=== PATIENT | female | born 1965 | race African-American/Black ===

== ENCOUNTER 2017-03-23 16:42 | Inpatient (IN) | payer OTHER ==
[2017-03-23 18:28] VITALS: BMI 52.4
--- NOTE | 2017-03-23 19:35 | HP ---
Admission ROS [facility] - [facility] Chief Complaint: I WANT TO GO TO REHAB Allergies/Adverse Reactions: Allergies Allergy/AdvReac Type Severity Reaction Status Date / Time red (food color) AdvReac Verified 03/23/17 19:35 History of Present Illness: 52 YEARS OLD FEMALE WITH LONG HISTORY OF ALCOHOL COCAINE NICOTINE MARIJUANA DEPENDENCE GERD ASTHMA HYPERTENSION AND DEPRESSION IS ADMITTED TO DETOX Exam Limitations: No Limitations - Ebola screening Have you traveled outside of the country in the last 21 days: No Have you had contact with anyone from an Ebola affected area: No Have you been sick,other than usual withdrawal symptoms: No Do you have a fever: No - Review of Systems Constitutional: Weight Stable EENT: reports: No Symptoms Reported Respiratory: reports: No Symptoms reported Cardiac: reports: No Symptoms Reported GI: reports: Indigestion : reports: No Symptoms Reported Musculoskeletal: reports: No Symptoms Reported Integumentary: reports: No Symptoms Reported Neuro: reports: No Symptoms reported Endocrine: reports: No Symptoms Reported Hematology: reports: No Symptoms Reported Psychiatric: reports: Judgement Intact, Mood/Affect Appropiate, Orientated x3 Other Systems: Reviewed and Negative Patient History - Patient Medical History Hx Anemia: No Hx Asthma: Yes Hx Chronic Obstructive Pulmonary Disease (COPD): No Hx Cancer: No Hx Cardiac Disorders: No Hx Congestive Heart Failure: No Hx Hypertension: Yes Hx Hypercholesterolemia: No Hx Pacemaker: No HX Cerebrovascular Accident: No Hx Seizures: No Hx Dementia: No Hx Diabetes: No Hx Gastrointestinal Disorders: Yes Hx Liver Disease: No Hx Genitourinary Disorders: No Hx Sexually Transmitted Disorders: No Hx Renal Disease (ESRD): No Hx Thyroid Disease: No Hx Human Immunodeficiency Virus (HIV): No Hx Hepatitis C: No Hx Depression: Yes Hx Suicide Attempt: No Hx Bipolar Disorder: No Hx Schizophrenia: No - Patient Surgical History Past Surgical History: Yes Hx Neurologic Surgery: No Hx Cataract Extraction: No Hx Cardiac Surgery: No Hx Lung Surgery: No Hx Breast Surgery: No Hx Breast Biopsy: No Hx Abdominal Surgery: No Hx Appendectomy: No Hx Cholecystectomy: No Hx Genitourinary Surgery: No Hx Section: No Hx Orthopedic Surgery: No Hx Hysterectomy: No Other Surgical History: ECTOPIC AGE 22 Anesthesia Reaction: No - PPD History Previous Implant?: Yes Documented Results: Negative w/o proof Implanted On Prior R Admission?: No PPD to be Administered?: Yes - Reproductive History Patient is a Female of Child Bearing Age (11 -55 yrs old): Yes Last Menstrual Period: 03/23/14 Patient : No - Smoking Cessation Smoking history: Current every day smoker Have you smoked in the past 12 months: Yes Aproximately how many cigarettes per day: 15 Cigars Per Day: 0 Hx Chewing Tobacco Use: No Initiated information on smoking cessation: Yes 'Breaking Loose' booklet given: 03/23/17 - Substance & Tx. History Hx Alcohol Use: Yes Hx Substance Use: Yes Substance Use Type: Alcohol, Cocaine, Marijuana Hx Substance Use Treatment: Yes ([facility] 03/23/17) - Substances Abused Alcohol Route: Oral Frequency: Daily Amount used: FIFTH VOLKA+[id number] BEER Age of first use: 12 Date of Last Use: 03/19/17 Family Disease History - Family Disease History Family Disease History: Heart Disease: Mother Admission Physical Exam [facility] - Vital Signs Vital Signs: Vital Signs - 24 hr 03/23/17 18:23 Temperature 97.3 F L Pulse Rate 87 Respiratory 16 Rate Blood Pressure 137/71 - Physical General Appearance: Yes: No Apparent Distress, Appropriately Dressed, Obese HEENTM: Yes: Hearing grossly Normal, Normal ENT Inspection, Normocephalic, Normal Voice Respiratory: Yes: Chest Non-Tender, No Respiratory Distress, No Accessory Muscle Use, Wheezing Neck: Yes: Supple, Trachea in good position Breast: Yes: Breasts Symetrical Cardiology: Yes: Regular Rhythm, Regular Rate, S1, S2 Abdominal: Yes: Non Tender, Soft Genitourinary: Yes: Within Normal Limits Back: Yes: Normal Inspection Musculoskeletal: Yes: full range of Motion, Gait Steady Extremities: Yes: Normal Inspection, Normal Range of Motion, Non-Tender Neurological: Yes: Fully Oriented, Alert, Motor Strength 5/5, Normal Mood/Affect , Normal Response Integumentary: Yes: Warm Lymphatic: Yes: Within Normal Limits - Diagnostic (1) Alcohol dependence with uncomplicated withdrawal Current Visit: Yes Status: Acute (2) Cannabis dependence, uncomplicated Current Visit: Yes Status: Chronic (3) Cocaine dependence, uncomplicated Current Visit: Yes Status: Chronic (4) Nicotine dependence Current Visit: Yes Status: Acute Qualifiers: Nicotine product type: cigarettes Substance use status: in withdrawal Qualified Code(s): F17.213 - Nicotine dependence, cigarettes, with withdrawal; F17.213 - Nicotine dependence, cigarettes, with withdrawal (5) Asthma Current Visit: Yes Status: Chronic Qualifiers: Asthma severity: mild Asthma persistence: intermittent (6) Hypertension Current Visit: Yes Status: Chronic Qualifiers: Hypertension type: essential hypertension Qualified Code(s): I10 - Essential (primary) hypertension; I10 - Essential (primary) hypertension; I10 - Essential (primary) hypertension (7) GERD (gastroesophageal reflux disease) Current Visit: Yes Status: Chronic Qualifiers: Esophagitis presence: without esophagitis Qualified Code(s): K21.9 - Gastro-esophageal reflux disease without esophagitis; K21.9 - Gastro- esophageal reflux disease without esophagitis; K21.9 - Gastro-esophageal reflux disease without esophagitis (8) Depression (emotion) Current Visit: Yes Status: Suspected Qualifiers: Depression Type: dysthymia Qualified Code(s): F34.1 - Dysthymic disorder; F34.1 - Dysthymic disorder; F34.1 - Dysthymic disorder Cleared for Admission [facility] - Detox or Rehab [facility] Level of Care: Observation Bed Detox Regimen/Protocol: Not Applicable Claeared for Rehab Admission: Yes [facility] Breath Alcohol Content Breath Alcohol Content: 0 Urine Pregancy Test - Result Urine Test Results: Negative- NO Line Present Urine Drug Screen - Results Drug Screen Negative: No Urine Drug Screen Results: BZO-Benzodiazepines, TCA-Tricyclic Antidepress Inpatient Rehab Admission - Initial Determination Are CD services needed?: Yes Free of communicable disease: Yes Not in need of hospitalization: Yes - Rehab Admission Criteria Previous failed treatment: Yes Poor recovery environment: Yes Comorbidities: Yes Lacks judgement: No Patient is meeting Inpatient Rehab admission criteria:: Yes
[2017-03-23] MEDS ORDERED: MAG HYDROX/AL HYDROX/SIMETH 30 ML UNIT-DOSE CUP PO PRN (19:37)
[2017-03-23] MEDS ORDERED: LOPERAMIDE HCL 2 MG CAPSULE PO PRN (19:37)
[2017-03-23] MEDS ORDERED: hydrOXYzine PAMOATE 50 MG CAPSULE (FP) PO PRN (19:37)
[2017-03-23] MEDS ORDERED: MENTHOL/PHENOL 1 EACH UD MM PRN (19:37)
[2017-03-23] MEDS ORDERED: guaiFENesin/D-METHORPHAN HB 10 ML UNIT-DOSE CUPS PO PRN (19:37)
[2017-03-23] MEDS ORDERED: P-EPHED 60MG/TRIPROLIDI 2.5MG TABLET PO PRN (19:37)
[2017-03-23] MEDS ORDERED: ALBUTEROL SO4 18 GM HFA INHALER IH PRN (19:39)
[2017-03-23] MEDS ORDERED: TUBERCULIN PPD 5 TU/0.1ML VIAL ID ONE (22:08)
[2017-03-23] MEDS: diphenhydrAMINE HCL 50 MG CAPSULE PO PRN (22:10)
[2017-03-23] MEDS: THIAMINE HCL 100 MG TABLET (FP) PO SCH (22:12)
[2017-03-23] MEDS: RANITIDINE HCL 150 MG TABLET (FP) PO SCH (22:16)
[2017-03-23 22:20] LABS: URINE APPEARANCE SLCLOUDY; URINE BILIRUBIN NEGATIVE (NEGATIVE); URINE BLOOD NEGATIVE (NEGATIVE); URINE COLOR LTYELLOW; URINE GLUCOSE (UA) NEGATIVE (NEGATIVE); URINE KETONE NEGATIVE (NEGATIVE); URINE NITRITE NEGATIVE (NEGATIVE); URINE PROTEIN NEGATIVE (NEGATIVE); URINE UROBILINOGEN NEGATIVE mg/dL (0.2-1.0)
[2017-03-23 23:06] LABS: URINE LEUK ESTERASE Negative (NEGATIVE)
[2017-03-24 09:49] LABS: MCH 21.2 pg (25.7-33.7); MEAN CELL VOLUME 68.4 fl (80-96); MEAN PLT VOLUME 9.2 fl (7.5-11.1); PLATELET COUNT 213 K/MM3 (134-434); RDW 19.8 % (11.6-15.6); WHITE BLOOD COUNT 7.7 K/mm3 (4.0-10.0)
--- NOTE | 2017-03-24 09:50 | EKG ---
Test Reason : Blood Pressure : / mmHG Vent. Rate : 089 BPM Atrial Rate : 089 BPM P-R Int : 156 ms QRS Dur : 096 ms QT Int : 372 ms P-R-T Axes : 069 034 062 degrees QTc Int : 452 ms NORMAL SINUS RHYTHM BIATRIAL ENLARGEMENT ABNORMAL ECG NO PREVIOUS ECGS AVAILABLE Confirmed by PATEL STILL MD ([id number]) on 03/24/2017 9:50:24 AM Referred By: Confirmed By:PATEL STILL MD
[2017-03-24 09:58] LABS: ALBUMIN 3.1 g/dl (3.4-5.0); ANION GAP 5 (8-16); BILIRUBIN,TOTAL 0.2 mg/dL (0.2-1.0); CO2 30 mmol/L (21-32); CREATININE 0.8 mg/dL (0.55-1.02); GLUCOSE,RANDOM 92 mg/dL (74-106); SGPT/ALT 16 U/L (12-78); TOT PROT 6.6 g/dl (6.4-8.2)
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
[2017-03-24 10:06] LABS: ALK PHOS 170 U/L (45-117); SGOT/AST 11 U/L (15-37)
[2017-03-24] MEDS: NICOTINE 21 MG/24 HOURS TOPICAL PATCH TD SCH (10:32)
[2017-03-24] MEDS: RANITIDINE HCL 150 MG TABLET (FP) PO SCH ×2 (10:33→21:33)
[2017-03-24] MEDS: PRENATAL VITAMINS W/ FOLIC ACID TABLET (FP) PO SCH (10:33)
[2017-03-24] MEDS: ENALAPRIL MALEATE 10 MG TABLET (FP) PO SCH (10:33)
[2017-03-24 14:30] LABS: ANISOCYTOSIS 1+; HYPOCHROMIA 3+; MICROCYTOSIS 1+; TARGET CELLS 3+
[2017-03-24] MEDS: THIAMINE HCL 100 MG TABLET (FP) PO SCH (21:33)
[2017-03-24] MEDS: ACETAMINOPHEN 325 MG TABLET (FP) PO PRN (21:34)
[2017-03-24] MEDS ORDERED: PT OWN MED DRAWER 7, Y5N ONE (21:35)
[2017-03-24] MEDS: AMITRIPTYLINE HCL 100 MG TABLET PO SCH (22:31)
[2017-03-25] MEDS: ACETAMINOPHEN 325 MG TABLET (FP) PO PRN ×2 (09:47→21:30)
[2017-03-25] MEDS: RANITIDINE HCL 150 MG TABLET (FP) PO SCH ×2 (09:48→21:29)
[2017-03-25] MEDS: ENALAPRIL MALEATE 10 MG TABLET (FP) PO SCH (09:48)
[2017-03-25] MEDS: PRENATAL VITAMINS W/ FOLIC ACID TABLET (FP) PO SCH (09:48)
[2017-03-25] MEDS: NICOTINE 21 MG/24 HOURS TOPICAL PATCH TD SCH (09:49)
[2017-03-25] MEDS: AMITRIPTYLINE HCL 100 MG TABLET PO SCH (21:30)
[2017-03-25] MEDS: THIAMINE HCL 100 MG TABLET (FP) PO SCH (21:30)
[2017-03-26] MEDS: RANITIDINE HCL 150 MG TABLET (FP) PO SCH ×2 (10:09→21:26)
[2017-03-26] MEDS: NICOTINE 21 MG/24 HOURS TOPICAL PATCH TD SCH (10:09)
[2017-03-26] MEDS: ACETAMINOPHEN 325 MG TABLET (FP) PO PRN ×2 (10:10→21:28)
[2017-03-26] MEDS: PRENATAL VITAMINS W/ FOLIC ACID TABLET (FP) PO SCH (10:10)
[2017-03-26] MEDS: MAGNESIUM HYDROX 2400MG/30ML ORAL SUSPENSION 30 ML CUP PO PRN (10:10)
[2017-03-26] MEDS: ENALAPRIL MALEATE 10 MG TABLET (FP) PO SCH (10:10)
[2017-03-26] MEDS: MAGNESIUM CITRATE 300 ML BOTTLE PO PRN (14:15)
[2017-03-26] MEDS ORDERED: PT OWN MED DRAWER 7, Y5N ONE ×2 (19:19→21:27)
[2017-03-26] MEDS: AMITRIPTYLINE HCL 100 MG TABLET PO SCH (21:27)
[2017-03-26] MEDS: THIAMINE HCL 100 MG TABLET (FP) PO SCH (21:28)
[2017-03-27] MEDS: NICOTINE 21 MG/24 HOURS TOPICAL PATCH TD SCH (10:28)
[2017-03-27] MEDS: PRENATAL VITAMINS W/ FOLIC ACID TABLET (FP) PO SCH (10:28)
[2017-03-27] MEDS: RANITIDINE HCL 150 MG TABLET (FP) PO SCH ×2 (10:28→21:31)
[2017-03-27] MEDS: ENALAPRIL MALEATE 10 MG TABLET (FP) PO SCH (10:28)
[2017-03-27] MEDS: ACETAMINOPHEN 325 MG TABLET (FP) PO PRN (10:30)
--- NOTE | 2017-03-27 12:28 | PN ---
S Progress Note Note: c/o chorini pain left knee, worse when she lies down has lost wt recently but no iporvement in pain. a/p: arthritis left knee - lidoderm patch and prn ibuprofen, reviewed labwork with patient, adviesed to continue wt loss.
[2017-03-27] MEDS: NAPROXEN 500 MG TABLET (FP) PO SCH ×2 (13:01→21:31)
[2017-03-27] MEDS: LIDOCAINE 5% TOPICAL PATCH TP SCH (13:02)
[2017-03-27] MEDS: THIAMINE HCL 100 MG TABLET (FP) PO SCH (21:30)
[2017-03-27] MEDS: AMITRIPTYLINE HCL 100 MG TABLET PO SCH (21:31)
[2017-03-27] MEDS: LIDOCAINE PATCH REMOVAL MC SCH (21:31)
[2017-03-28] MEDS: LIDOCAINE 5% TOPICAL PATCH TP SCH (10:37)
[2017-03-28] MEDS: ENALAPRIL MALEATE 10 MG TABLET (FP) PO SCH (10:37)
[2017-03-28] MEDS: PRENATAL VITAMINS W/ FOLIC ACID TABLET (FP) PO SCH (10:37)
[2017-03-28] MEDS: RANITIDINE HCL 150 MG TABLET (FP) PO SCH ×2 (10:37→21:25)
[2017-03-28] MEDS: NICOTINE 21 MG/24 HOURS TOPICAL PATCH TD SCH (10:38)
[2017-03-28] MEDS: NAPROXEN 500 MG TABLET (FP) PO SCH ×2 (10:38→21:25)
--- NOTE | 2017-03-28 12:04 | PN ---
S Progress Note Note: patient reports falling on bottom outside,no injuries no heavenly, occurrence report completed, fall protocol jill d/w nurse
[2017-03-28] MEDS: AMITRIPTYLINE HCL 100 MG TABLET PO SCH (21:25)
[2017-03-28] MEDS: THIAMINE HCL 100 MG TABLET (FP) PO SCH (21:25)
[2017-03-28] MEDS: LIDOCAINE PATCH REMOVAL MC SCH (21:26)
[2017-03-29] MEDS: NICOTINE 21 MG/24 HOURS TOPICAL PATCH TD SCH (10:33)
[2017-03-29] MEDS: RANITIDINE HCL 150 MG TABLET (FP) PO SCH ×2 (10:34→21:32)
[2017-03-29] MEDS: LIDOCAINE 5% TOPICAL PATCH TP SCH (10:34)
[2017-03-29] MEDS: ENALAPRIL MALEATE 10 MG TABLET (FP) PO SCH (10:34)
[2017-03-29] MEDS: PRENATAL VITAMINS W/ FOLIC ACID TABLET (FP) PO SCH (10:34)
[2017-03-29] MEDS: NAPROXEN 500 MG TABLET (FP) PO SCH ×2 (10:34→21:32)
--- NOTE | 2017-03-29 15:20 | PN ---
Psychiatric Progress Note Vital Signs: Vital Signs Period Temp Pulse Resp BP Sys/Polo Pulse Ox Last 24 Hr 97.2 F-97.9 F 80-85 18-20 119-145/72-83 Date of Session: 03/29/17 Chief Complaint:: " I need medication for alcohol craving,i want to try Campral. " HPI: Patient addressed Alcohol,Cocaine dependence comorbid with substance induced mood disorder. ROS: Significanr for BA,GERD,HTN. Current Medications: Active Medications Generic Name Dose Route Start Last Admin Trade Name Freq PRN Reason Stop Dose Admin Acetaminophen 650 mg 03/23/17 19:37 03/27/17 10:30 Tylenol - PO 650 mg Q4H PRN Administration PAIN Al Hydroxide/Mg Hydroxide 30 ml 03/23/17 19:37 Mylanta Oral Suspension - PO Q6H PRN DYSPEPSIA Albuterol Sulfate 2 puff 03/23/17 19:39 Ventolin Hfa Inhaler - IH Q4H PRN SHORT OF BREATH/WHEEZING Amitriptyline HCl 100 mg 03/24/17 22:00 03/28/17 21:25 Elavil - PO 100 mg HS SANDRA Administration Bupropion HCl 300 mg 03/24/17 12:15 03/29/17 10:34 Wellbutrin Xl - PO 300 mg DAILY SANDRA Administration Diphenhydramine HCl 50 mg 03/23/17 19:37 03/23/17 22:10 Benadryl - PO 50 mg HSMR1 PRN Administration INSOMNIA Enalapril Maleate 10 mg 03/24/17 10:00 03/29/17 10:34 Vasotec - PO 10 mg DAILY SANDRA Administration Eucalyptus/Menthol/Phenol/Sorbitol 1 each 03/23/17 19:37 Cepastat Lozenge - MM Q4H PRN SORE THROAT Guaifenesin 10 ml 03/23/17 19:37 Robitussin Dm - PO Q6H PRN COUGH Hydroxyzine Pamoate 50 mg 03/23/17 19:37 Vistaril - PO Q4H PRN AGITATION Lidocaine 1 patch 03/27/17 12:54 03/29/17 10:34 Lidoderm Patch - TP 1 patch DAILY SANDRA Administration Loperamide HCl 4 mg 03/23/17 19:37 Imodium - PO Q6H PRN DIARRHEA Magnesium Citrate 300 ml 03/23/17 19:37 03/26/17 14:15 Citroma - PO 300 ml Q48H PRN Administration CONSTIPATION Magnesium Hydroxide 30 ml 03/23/17 19:37 03/26/17 10:10 Milk Of Magnesia - PO 30 ml DAILY PRN Administration CONSTIPATION Miscellaneous 1 each 03/27/17 22:00 03/28/17 21:26 Lidoderm Patch Removal MC Not Given DAILY@2200 SANDRA Naproxen 500 mg 03/27/17 12:55 03/29/17 10:34 Naprosyn - PO 500 mg BID SANDRA Administration Nicotine 21 mg 03/24/17 10:00 03/29/17 10:33 Nicoderm Patch - TD 21 mg DAILY SANDRA Administration Nicotine Polacrilex 4 mg 03/23/17 19:37 Nicorette Gum - BC Q2H PRN NICOTINE REPLACEMENT RX Multivit/Folic Acid/Iron 1 tab 03/24/17 10:00 03/29/17 10:34 Vitamins (Sjr) - PO 1 tab DAILY SANDRA Administration Pseudoephedrine/Triprolidine 1 combo 03/23/17 19:37 Actifed - PO TID PRN NASAL CONGESTION Ranitidine HCl 150 mg 03/23/17 22:00 03/29/17 10:34 Zantac - PO 150 mg BID SANDRA Administration Thiamine HCl 100 mg 03/23/17 22:00 03/28/17 21:25 Vitamin B1 - PO 100 mg HS SANDRA Administration Current Side Effect: No Lab tests ordered: No Lab tests reviewed: Yes Provider note:: Chart was revuewed,patient was evaluated and treatment plan including medications management has been discuused with the patient.She addressed stil having craving at times for alcohol.properties of Campral has been discussed with the patient including side effects,benefits and doseadjustment.PAtient is swilling to start Campral today.Continue Wellbutrin 300 mg po daily and Amitriptillin 100 mg po hs.Campral 666 mg po tid will be started today. Supportive therapy provided,coping skills utilization has been discussed as well. Total face to face time:: 35 Mental Status Exam - Mental Status Exam Alert and Oriented to: Time, Place, Person Cognitive Function: Grossly Intact Patient Appearance: Well Groomed Mood: Anxious Affect: Mood Congruent Patient Behavior: Cooperative Speech Pattern: Clear Voice Loudness: Normal Thought Process: Goal Oriented Thought Disorder: Not Present Hallucinations: Denies Suicidal Ideation: Denies Homicidal Ideation: Denies Insight/Judgement: Fair Sleep: Fair Appetite: Good Muscle strength/Tone: Normal Gait/Station: Normal Psychiatric Treatment Plan - Problem List (1) Nicotine dependence Current Visit: Yes Qualifiers: Nicotine product type: cigarettes Substance use status: in withdrawal Qualified Code(s): F17.213 - Nicotine dependence, cigarettes, with withdrawal; F17.213 - Nicotine dependence, cigarettes, with withdrawal (2) Asthma Current Visit: Yes Qualifiers: Asthma severity: mild Asthma persistence: intermittent (3) GERD (gastroesophageal reflux disease) Current Visit: Yes Qualifiers: Esophagitis presence: without esophagitis Qualified Code(s): K21.9 - Gastro-esophageal reflux disease without esophagitis; K21.9 - Gastro- esophageal reflux disease without esophagitis; K21.9 - Gastro-esophageal reflux disease without esophagitis (4) Hypertension Current Visit: Yes Qualifiers: Hypertension type: essential hypertension Qualified Code(s): I10 - Essential (primary) hypertension; I10 - Essential (primary) hypertension; I10 - Essential (primary) hypertension (5) Alcohol dependence Current Visit: Yes (6) Cocaine dependence Current Visit: Yes (7) Cannabis dependence Current Visit: Yes (8) PTSD (post-traumatic stress disorder) Current Visit: Yes (9) Psychoactive substance-induced mood disorder Current Visit: Yes
[2017-03-29] MEDS: ACAMPROSATE CALCIUM 333 MG TABLET.DR PO SCH ×2 (17:30→21:32)
[2017-03-29] MEDS: AMITRIPTYLINE HCL 100 MG TABLET PO SCH (21:32)
[2017-03-29] MEDS: THIAMINE HCL 100 MG TABLET (FP) PO SCH (21:32)
[2017-03-29] MEDS: LIDOCAINE PATCH REMOVAL MC SCH (21:34)
[2017-03-30] MEDS: ACAMPROSATE CALCIUM 333 MG TABLET.DR PO SCH ×3 (06:37→21:38)
[2017-03-30] MEDS: ENALAPRIL MALEATE 10 MG TABLET (FP) PO SCH (10:11)
[2017-03-30] MEDS: NAPROXEN 500 MG TABLET (FP) PO SCH ×2 (10:12→21:38)
[2017-03-30] MEDS: PRENATAL VITAMINS W/ FOLIC ACID TABLET (FP) PO SCH (10:12)
[2017-03-30] MEDS: LIDOCAINE 5% TOPICAL PATCH TP SCH (10:12)
[2017-03-30] MEDS: RANITIDINE HCL 150 MG TABLET (FP) PO SCH ×2 (10:12→21:38)
[2017-03-30] MEDS: NICOTINE 21 MG/24 HOURS TOPICAL PATCH TD SCH (10:12)
[2017-03-30] MEDS: ACETAMINOPHEN 325 MG TABLET (FP) PO PRN (13:13)
[2017-03-30] MEDS: THIAMINE HCL 100 MG TABLET (FP) PO SCH (21:38)
[2017-03-30] MEDS: AMITRIPTYLINE HCL 100 MG TABLET PO SCH (21:38)
[2017-03-30] MEDS: LIDOCAINE PATCH REMOVAL MC SCH (21:39)
[2017-03-31] MEDS: ACAMPROSATE CALCIUM 333 MG TABLET.DR PO SCH ×3 (06:40→21:30)
[2017-03-31] MEDS: NICOTINE 21 MG/24 HOURS TOPICAL PATCH TD SCH (10:36)
[2017-03-31] MEDS: NAPROXEN 500 MG TABLET (FP) PO SCH ×2 (10:36→21:30)
[2017-03-31] MEDS: RANITIDINE HCL 150 MG TABLET (FP) PO SCH ×2 (10:36→21:30)
[2017-03-31] MEDS: ENALAPRIL MALEATE 10 MG TABLET (FP) PO SCH (10:36)
[2017-03-31] MEDS: PRENATAL VITAMINS W/ FOLIC ACID TABLET (FP) PO SCH (10:36)
[2017-03-31] MEDS: LIDOCAINE 5% TOPICAL PATCH TP SCH (10:37)
--- NOTE | 2017-03-31 11:17 | PN ---
[facility] Progress Note Note: Pt. tripped and fell as she was entering her bedroom. She landed on her knees but suffered no injuries. Vital Signs 03/31/17 03/31/17 03:30 06:55 Temperature 98.0 F Pulse Rate 87 Respiratory 18 18 Rate Blood Pressure 145/73 current VS : BP 145/84 P 83 Temp 98F R 17 Exam : Both knees with normal ROM, no injuries noted P : Monitor for any changes Cold pack as needed to knees
[2017-03-31] MEDS: ACETAMINOPHEN 325 MG TABLET (FP) PO PRN ×2 (17:05→20:21)
[2017-03-31] MEDS: AMITRIPTYLINE HCL 100 MG TABLET PO SCH (21:30)
[2017-03-31] MEDS: THIAMINE HCL 100 MG TABLET (FP) PO SCH (21:30)
[2017-03-31] MEDS: LIDOCAINE PATCH REMOVAL MC SCH (23:36)
[2017-03-31] MEDS: MAGNESIUM HYDROX 2400MG/30ML ORAL SUSPENSION 30 ML CUP PO PRN (23:52)
[2017-04-01] MEDS: ACAMPROSATE CALCIUM 333 MG TABLET.DR PO SCH ×3 (07:53→21:53)
[2017-04-01] MEDS: NICOTINE 21 MG/24 HOURS TOPICAL PATCH TD SCH (10:20)
[2017-04-01] MEDS: ENALAPRIL MALEATE 10 MG TABLET (FP) PO SCH (10:21)
[2017-04-01] MEDS: PRENATAL VITAMINS W/ FOLIC ACID TABLET (FP) PO SCH (10:21)
[2017-04-01] MEDS: LIDOCAINE 5% TOPICAL PATCH TP SCH (10:21)
[2017-04-01] MEDS: RANITIDINE HCL 150 MG TABLET (FP) PO SCH ×2 (10:21→21:53)
[2017-04-01] MEDS: NAPROXEN 500 MG TABLET (FP) PO SCH ×2 (10:21→21:53)
[2017-04-01] MEDS: ACETAMINOPHEN 325 MG TABLET (FP) PO PRN (12:03)
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
--- NOTE | 2017-04-01 13:43 | PN ---
[facility] Progress Note Note: PSYCHIATRIST ON CALLED NOTIFIED BY NURSE
[2017-04-01] MEDS: MAGNESIUM CITRATE 300 ML BOTTLE PO PRN (18:20)
[2017-04-01] MEDS: AMITRIPTYLINE HCL 100 MG TABLET PO SCH (21:53)
[2017-04-01] MEDS: THIAMINE HCL 100 MG TABLET (FP) PO SCH (21:53)
[2017-04-01] MEDS: LIDOCAINE PATCH REMOVAL MC SCH (21:54)
[2017-04-02] MEDS: ACAMPROSATE CALCIUM 333 MG TABLET.DR PO SCH ×3 (07:00→21:43)
[2017-04-02] MEDS: ENALAPRIL MALEATE 10 MG TABLET (FP) PO SCH (10:16)
[2017-04-02] MEDS: PRENATAL VITAMINS W/ FOLIC ACID TABLET (FP) PO SCH (10:16)
[2017-04-02] MEDS: RANITIDINE HCL 150 MG TABLET (FP) PO SCH ×2 (10:16→21:44)
[2017-04-02] MEDS: NAPROXEN 500 MG TABLET (FP) PO SCH ×2 (10:16→21:44)
[2017-04-02] MEDS: NICOTINE 21 MG/24 HOURS TOPICAL PATCH TD SCH (10:16)
[2017-04-02] MEDS: LIDOCAINE 5% TOPICAL PATCH TP SCH (10:17)
[2017-04-02] MEDS: THIAMINE HCL 100 MG TABLET (FP) PO SCH (21:43)
[2017-04-02] MEDS: LIDOCAINE PATCH REMOVAL MC SCH (21:44)
[2017-04-02] MEDS: AMITRIPTYLINE HCL 100 MG TABLET PO SCH (21:44)
[2017-04-03] MEDS: ACAMPROSATE CALCIUM 333 MG TABLET.DR PO SCH ×3 (06:30→21:35)
[2017-04-03] MEDS: NICOTINE 21 MG/24 HOURS TOPICAL PATCH TD SCH (10:15)
[2017-04-03] MEDS: LIDOCAINE 5% TOPICAL PATCH TP SCH (10:15)
[2017-04-03] MEDS: ENALAPRIL MALEATE 10 MG TABLET (FP) PO SCH (10:16)
[2017-04-03] MEDS: NAPROXEN 500 MG TABLET (FP) PO SCH ×2 (10:16→21:35)
[2017-04-03] MEDS: PRENATAL VITAMINS W/ FOLIC ACID TABLET (FP) PO SCH (10:16)
[2017-04-03] MEDS: RANITIDINE HCL 150 MG TABLET (FP) PO SCH ×2 (10:17→21:35)
[2017-04-03] MEDS: NICOTINE POLACRILEX 4 MG GUM BC PRN (10:21)
[2017-04-03] MEDS: AMITRIPTYLINE HCL 100 MG TABLET PO SCH (21:35)
[2017-04-03] MEDS: THIAMINE HCL 100 MG TABLET (FP) PO SCH (21:35)
[2017-04-03] MEDS: LIDOCAINE PATCH REMOVAL MC SCH (21:36)
[2017-04-04] MEDS: ACAMPROSATE CALCIUM 333 MG TABLET.DR PO SCH ×3 (06:40→22:00)
[2017-04-04] MEDS: LIDOCAINE 5% TOPICAL PATCH TP SCH (10:46)
[2017-04-04] MEDS: ENALAPRIL MALEATE 10 MG TABLET (FP) PO SCH (10:46)
[2017-04-04] MEDS: RANITIDINE HCL 150 MG TABLET (FP) PO SCH ×2 (10:46→22:00)
[2017-04-04] MEDS: PRENATAL VITAMINS W/ FOLIC ACID TABLET (FP) PO SCH (10:46)
[2017-04-04] MEDS: NAPROXEN 500 MG TABLET (FP) PO SCH ×2 (10:46→22:00)
[2017-04-04] MEDS: NICOTINE 21 MG/24 HOURS TOPICAL PATCH TD SCH (10:46)
[2017-04-04] MEDS: AMITRIPTYLINE HCL 100 MG TABLET PO SCH (22:00)
[2017-04-04] MEDS: LIDOCAINE PATCH REMOVAL MC SCH (22:00)
[2017-04-04] MEDS: THIAMINE HCL 100 MG TABLET (FP) PO SCH (22:00)
[2017-04-04] MEDS: diphenhydrAMINE HCL 50 MG CAPSULE PO PRN (22:01)
[2017-04-05] MEDS: ACAMPROSATE CALCIUM 333 MG TABLET.DR PO SCH ×3 (06:42→22:11)
[2017-04-05] MEDS: PRENATAL VITAMINS W/ FOLIC ACID TABLET (FP) PO SCH (11:01)
[2017-04-05] MEDS: ENALAPRIL MALEATE 10 MG TABLET (FP) PO SCH (11:02)
[2017-04-05] MEDS: LIDOCAINE 5% TOPICAL PATCH TP SCH (11:02)
[2017-04-05] MEDS: NICOTINE 21 MG/24 HOURS TOPICAL PATCH TD SCH (11:02)
[2017-04-05] MEDS: NAPROXEN 500 MG TABLET (FP) PO SCH ×2 (11:02→22:11)
[2017-04-05] MEDS: RANITIDINE HCL 150 MG TABLET (FP) PO SCH ×2 (11:02→22:11)
[2017-04-05] MEDS: THIAMINE HCL 100 MG TABLET (FP) PO SCH (22:11)
[2017-04-05] MEDS: AMITRIPTYLINE HCL 100 MG TABLET PO SCH (22:11)
[2017-04-05] MEDS: LIDOCAINE PATCH REMOVAL MC SCH (22:12)
[2017-04-05] MEDS: diphenhydrAMINE HCL 50 MG CAPSULE PO PRN (22:12)
[2017-04-06] MEDS: ACAMPROSATE CALCIUM 333 MG TABLET.DR PO SCH ×3 (06:20→21:51)
[2017-04-06] MEDS: LIDOCAINE 5% TOPICAL PATCH TP SCH (10:45)
[2017-04-06] MEDS: NAPROXEN 500 MG TABLET (FP) PO SCH ×2 (10:45→21:51)
[2017-04-06] MEDS: PRENATAL VITAMINS W/ FOLIC ACID TABLET (FP) PO SCH (10:46)
[2017-04-06] MEDS: ENALAPRIL MALEATE 10 MG TABLET (FP) PO SCH (10:46)
[2017-04-06] MEDS: NICOTINE 21 MG/24 HOURS TOPICAL PATCH TD SCH (10:46)
[2017-04-06] MEDS: RANITIDINE HCL 150 MG TABLET (FP) PO SCH ×2 (10:46→21:51)
[2017-04-06] MEDS: AMITRIPTYLINE HCL 100 MG TABLET PO SCH (21:51)
[2017-04-06] MEDS: THIAMINE HCL 100 MG TABLET (FP) PO SCH (21:51)
[2017-04-06] MEDS: diphenhydrAMINE HCL 50 MG CAPSULE PO PRN (21:51)
[2017-04-06] MEDS: LIDOCAINE PATCH REMOVAL MC SCH (21:52)
[2017-04-07] MEDS: ACAMPROSATE CALCIUM 333 MG TABLET.DR PO SCH ×3 (06:20→22:01)
--- NOTE | 2017-04-07 10:02 | PN ---
[facility] Progress Note Note: contact dermatitis from nicotine patch d/w patient will d/c patchuse gum only hydrocortisone prn ordered
[2017-04-07] MEDS: ENALAPRIL MALEATE 10 MG TABLET (FP) PO SCH (11:07)
[2017-04-07] MEDS: NAPROXEN 500 MG TABLET (FP) PO SCH ×2 (11:07→22:02)
[2017-04-07] MEDS: RANITIDINE HCL 150 MG TABLET (FP) PO SCH ×2 (11:07→22:01)
[2017-04-07] MEDS: PRENATAL VITAMINS W/ FOLIC ACID TABLET (FP) PO SCH (11:07)
[2017-04-07] MEDS: LIDOCAINE 5% TOPICAL PATCH TP SCH (11:08)
[2017-04-07] MEDS: NICOTINE POLACRILEX 4 MG GUM BC PRN ×2 (11:09→17:52)
[2017-04-07] MEDS: HYDROCORTISONE 1% TOPICAL CREAM 30 GM TUBE TP PRN (11:10)
[2017-04-07] MEDS: NICOTINE 21 MG/24 HOURS TOPICAL PATCH TD SCH (11:24)
[2017-04-07] MEDS: AMITRIPTYLINE HCL 100 MG TABLET PO SCH (22:01)
[2017-04-07] MEDS: THIAMINE HCL 100 MG TABLET (FP) PO SCH (22:01)
[2017-04-07] MEDS: LIDOCAINE PATCH REMOVAL MC SCH (22:02)
[2017-04-07] MEDS: diphenhydrAMINE HCL 50 MG CAPSULE PO PRN (22:02)
[2017-04-08] MEDS: ACAMPROSATE CALCIUM 333 MG TABLET.DR PO SCH ×3 (06:52→21:51)
[2017-04-08] MEDS: HYDROCORTISONE 1% TOPICAL CREAM 30 GM TUBE TP PRN (06:53)
[2017-04-08] MEDS ORDERED: PT OWN MED DRAWER 7, Y5N ONE (06:53)
[2017-04-08] MEDS: LIDOCAINE 5% TOPICAL PATCH TP SCH (10:18)
[2017-04-08] MEDS: PRENATAL VITAMINS W/ FOLIC ACID TABLET (FP) PO SCH (10:18)
[2017-04-08] MEDS: ENALAPRIL MALEATE 10 MG TABLET (FP) PO SCH (10:19)
[2017-04-08] MEDS: NAPROXEN 500 MG TABLET (FP) PO SCH ×2 (10:19→21:51)
[2017-04-08] MEDS: RANITIDINE HCL 150 MG TABLET (FP) PO SCH ×2 (10:19→21:51)
[2017-04-08] MEDS: NICOTINE POLACRILEX 4 MG GUM BC PRN ×2 (17:42→21:53)
[2017-04-08] MEDS: THIAMINE HCL 100 MG TABLET (FP) PO SCH (21:51)
[2017-04-08] MEDS: LIDOCAINE PATCH REMOVAL MC SCH (21:51)
[2017-04-08] MEDS: AMITRIPTYLINE HCL 100 MG TABLET PO SCH (21:51)
[2017-04-08] MEDS: diphenhydrAMINE HCL 50 MG CAPSULE PO PRN (21:51)
[2017-04-08] MEDS: ACETAMINOPHEN 325 MG TABLET (FP) PO PRN (22:16)
[2017-04-09] MEDS: ACAMPROSATE CALCIUM 333 MG TABLET.DR PO SCH ×3 (06:32→21:51)
[2017-04-09] MEDS: ACETAMINOPHEN 325 MG TABLET (FP) PO PRN ×2 (06:32→21:52)
[2017-04-09] MEDS ORDERED: PT OWN MED DRAWER 7, Y5N ONE ×2 (08:34→10:33)
[2017-04-09] MEDS: NAPROXEN 500 MG TABLET (FP) PO SCH ×2 (09:38→21:51)
[2017-04-09] MEDS: ENALAPRIL MALEATE 10 MG TABLET (FP) PO SCH (09:38)
[2017-04-09] MEDS: PRENATAL VITAMINS W/ FOLIC ACID TABLET (FP) PO SCH (09:38)
[2017-04-09] MEDS: RANITIDINE HCL 150 MG TABLET (FP) PO SCH ×2 (09:38→21:52)
[2017-04-09] MEDS: LIDOCAINE 5% TOPICAL PATCH TP SCH (09:38)
[2017-04-09] MEDS: THIAMINE HCL 100 MG TABLET (FP) PO SCH (21:51)
[2017-04-09] MEDS: AMITRIPTYLINE HCL 100 MG TABLET PO SCH (21:52)
[2017-04-09] MEDS: diphenhydrAMINE HCL 50 MG CAPSULE PO PRN (21:52)
[2017-04-09] MEDS: NICOTINE POLACRILEX 4 MG GUM BC PRN (21:53)
[2017-04-09] MEDS: LIDOCAINE PATCH REMOVAL MC SCH (22:07)
[2017-04-10] MEDS ORDERED: PT OWN MED DRAWER 7, Y5N ONE ×2 (03:26→11:41)
[2017-04-10] MEDS: ACAMPROSATE CALCIUM 333 MG TABLET.DR PO SCH ×3 (06:23→22:14)
[2017-04-10] MEDS: ACETAMINOPHEN 325 MG TABLET (FP) PO PRN ×2 (06:23→22:14)
[2017-04-10] MEDS: HYDROCORTISONE 1% TOPICAL CREAM 30 GM TUBE TP PRN (10:57)
[2017-04-10] MEDS: ENALAPRIL MALEATE 10 MG TABLET (FP) PO SCH (10:57)
[2017-04-10] MEDS: PRENATAL VITAMINS W/ FOLIC ACID TABLET (FP) PO SCH (10:57)
[2017-04-10] MEDS: RANITIDINE HCL 150 MG TABLET (FP) PO SCH ×2 (10:57→22:14)
[2017-04-10] MEDS: NAPROXEN 500 MG TABLET (FP) PO SCH ×2 (10:57→22:14)
[2017-04-10] MEDS: LIDOCAINE 5% TOPICAL PATCH TP SCH (10:57)
[2017-04-10] MEDS: NICOTINE POLACRILEX 4 MG GUM BC PRN (10:58)
[2017-04-10] MEDS: AMITRIPTYLINE HCL 100 MG TABLET PO SCH (22:14)
[2017-04-10] MEDS: THIAMINE HCL 100 MG TABLET (FP) PO SCH (22:14)
[2017-04-10] MEDS: LIDOCAINE PATCH REMOVAL MC SCH (22:16)
[2017-04-11] MEDS: ACAMPROSATE CALCIUM 333 MG TABLET.DR PO SCH ×4 (06:23→21:56)
[2017-04-11] MEDS: LIDOCAINE 5% TOPICAL PATCH TP SCH (10:39)
[2017-04-11] MEDS: NAPROXEN 500 MG TABLET (FP) PO SCH ×2 (10:39→21:56)
[2017-04-11] MEDS: RANITIDINE HCL 150 MG TABLET (FP) PO SCH ×2 (10:40→21:56)
[2017-04-11] MEDS: PRENATAL VITAMINS W/ FOLIC ACID TABLET (FP) PO SCH (10:40)
[2017-04-11] MEDS: HYDROCORTISONE 1% TOPICAL CREAM 30 GM TUBE TP PRN (10:40)
[2017-04-11] MEDS: ENALAPRIL MALEATE 10 MG TABLET (FP) PO SCH (10:40)
[2017-04-11] MEDS: NICOTINE POLACRILEX 4 MG GUM BC PRN (13:55)
[2017-04-11] MEDS: ACETAMINOPHEN 325 MG TABLET (FP) PO PRN (15:58)
[2017-04-11] MEDS: THIAMINE HCL 100 MG TABLET (FP) PO SCH (21:56)
[2017-04-11] MEDS: AMITRIPTYLINE HCL 100 MG TABLET PO SCH (21:56)
[2017-04-11] MEDS: diphenhydrAMINE HCL 50 MG CAPSULE PO PRN (21:57)
[2017-04-11] MEDS: LIDOCAINE PATCH REMOVAL MC SCH (21:57)
[2017-04-12] MEDS: ACETAMINOPHEN 325 MG TABLET (FP) PO PRN (06:20)
[2017-04-12] MEDS: ACAMPROSATE CALCIUM 333 MG TABLET.DR PO SCH ×3 (06:20→21:41)
[2017-04-12] MEDS ORDERED: PT OWN MED DRAWER 7, Y5N ONE ×2 (08:58→13:17)
[2017-04-12] MEDS: RANITIDINE HCL 150 MG TABLET (FP) PO SCH ×2 (10:50→21:41)
[2017-04-12] MEDS: PRENATAL VITAMINS W/ FOLIC ACID TABLET (FP) PO SCH (10:50)
[2017-04-12] MEDS: NAPROXEN 500 MG TABLET (FP) PO SCH ×2 (10:50→21:41)
[2017-04-12] MEDS: ENALAPRIL MALEATE 10 MG TABLET (FP) PO SCH (10:51)
[2017-04-12] MEDS: LIDOCAINE 5% TOPICAL PATCH TP SCH (10:51)
[2017-04-12] MEDS: HYDROCORTISONE 1% TOPICAL CREAM 30 GM TUBE TP PRN (10:51)
[2017-04-12] MEDS: NICOTINE POLACRILEX 4 MG GUM BC PRN (10:52)
--- NOTE | 2017-04-12 16:27 | PN ---
Psychiatric Progress Note Vital Signs: Vital Signs Period Temp Pulse Resp BP Sys/Pool Pulse Ox Last 24 Hr 98 F 82-90 18-18 132-142/67-82 Date of Session: 04/12/17 Chief Complaint:: Discharge visit HPI: Patient addressed Alcohol,Cocaine and Cannabis dependence comorbid with PTSD,Substance induced mood disorder. ROS: BA,GERD,HTN. Current Medications: Active Medications Generic Name Dose Route Start Last Admin Trade Name Freq PRN Reason Stop Dose Admin Acamprosate 666 mg 03/29/17 16:45 04/12/17 13:13 Campral - PO 666 mg TID SANDRA Administration Acetaminophen 650 mg 03/23/17 19:37 04/12/17 06:20 Tylenol - PO 650 mg Q4H PRN Administration PAIN Al Hydroxide/Mg Hydroxide 30 ml 03/23/17 19:37 Mylanta Oral Suspension - PO Q6H PRN DYSPEPSIA Albuterol Sulfate 2 puff 03/23/17 19:39 Ventolin Hfa Inhaler - IH Q4H PRN SHORT OF BREATH/WHEEZING Amitriptyline HCl 100 mg 03/24/17 22:00 04/11/17 21:56 Elavil - PO 100 mg HS SANDRA Administration Bupropion HCl 300 mg 03/24/17 12:15 04/12/17 10:51 Wellbutrin Xl - PO 300 mg DAILY SANDRA Administration Diphenhydramine HCl 50 mg 03/23/17 19:37 04/11/17 21:57 Benadryl - PO 50 mg HSMR1 PRN Administration INSOMNIA Enalapril Maleate 10 mg 03/24/17 10:00 04/12/17 10:51 Vasotec - PO 10 mg DAILY SANDRA Administration Eucalyptus/Menthol/Phenol/Sorbitol 1 each 03/23/17 19:37 Cepastat Lozenge - MM Q4H PRN SORE THROAT Guaifenesin 10 ml 03/23/17 19:37 Robitussin Dm - PO Q6H PRN COUGH Hydrocortisone 1 applic 04/07/17 10:01 04/12/17 10:51 Hytone 1% Cream - TP 1 applic DAILY PRN Administration FOR ITCHING Hydroxyzine Pamoate 50 mg 03/23/17 19:37 Vistaril - PO Q4H PRN AGITATION Lidocaine 1 patch 03/27/17 12:54 04/12/17 10:51 Lidoderm Patch - TP 1 patch DAILY SANDRA Administration Loperamide HCl 4 mg 03/23/17 19:37 Imodium - PO Q6H PRN DIARRHEA Magnesium Citrate 300 ml 03/23/17 19:37 04/01/17 18:20 Citroma - PO 300 ml Q48H PRN Administration CONSTIPATION Magnesium Hydroxide 30 ml 03/23/17 19:37 03/31/17 23:52 Milk Of Magnesia - PO 30 ml DAILY PRN Administration CONSTIPATION Miscellaneous 1 each 03/27/17 22:00 04/11/17 21:57 Lidoderm Patch Removal MC 1 each DAILY@2200 SANDRA Administration Naproxen 500 mg 03/27/17 12:55 04/12/17 10:50 Naprosyn - PO 500 mg BID SANDRA Administration Nicotine Polacrilex 4 mg 03/23/17 19:37 04/12/17 10:52 Nicorette Gum - BC 4 mg Q2H PRN Administration NICOTINE REPLACEMENT RX Multivit/Folic Acid/Iron 1 tab 03/24/17 10:00 04/12/17 10:50 Vitamins (Sjr) - PO 1 tab DAILY SANDRA Administration Pseudoephedrine/Triprolidine 1 combo 03/23/17 19:37 Actifed - PO TID PRN NASAL CONGESTION Ranitidine HCl 150 mg 03/23/17 22:00 04/12/17 10:50 Zantac - PO 150 mg BID SANDRA Administration Thiamine HCl 100 mg 03/23/17 22:00 04/11/17 21:56 Vitamin B1 - PO 100 mg HS SANDRA Administration Current Side Effect: No Lab tests ordered: No Lab tests reviewed: Yes Provider note:: Patient will complete this program tomorrow 04/13/17.She has met her treatment goals and will continue to address her issues on outpatient basis.Patient reports current medications:Elavil 100 mg po hs,Wellbutrin XL 300 mg po daily and Campral 333 mg po 2 tab tid help to cope with anxiety,mood instability,depression and craving for alcohol.Scripts for 30 days provided. Therapy provided focusing on relapse prevention,coping skiils,support utilization has been discussed as well to maintain recovery. Patient is stable for discharge tomorrow 04/13/17. Total face to face time:: 30 Mental Status Exam - Mental Status Exam Alert and Oriented to: Time, Place, Person Cognitive Function: Grossly Intact Patient Appearance: Well Groomed Mood: Euthymic Affect: Mood Congruent Patient Behavior: Cooperative Speech Pattern: Clear Voice Loudness: Normal Thought Process: Goal Oriented Thought Disorder: Not Present Hallucinations: Denies Suicidal Ideation: Denies Homicidal Ideation: Denies Insight/Judgement: Fair Sleep: Fair Appetite: Good Muscle strength/Tone: Normal Gait/Station: Normal Psychiatric Treatment Plan - Problem List (1) Nicotine dependence Current Visit: Yes Qualifiers: Nicotine product type: cigarettes Substance use status: in withdrawal Qualified Code(s): F17.213 - Nicotine dependence, cigarettes, with withdrawal; F17.213 - Nicotine dependence, cigarettes, with withdrawal (2) Asthma Current Visit: Yes Qualifiers: Asthma severity: mild Asthma persistence: intermittent (3) GERD (gastroesophageal reflux disease) Current Visit: Yes Qualifiers: Esophagitis presence: without esophagitis Qualified Code(s): K21.9 - Gastro-esophageal reflux disease without esophagitis; K21.9 - Gastro- esophageal reflux disease without esophagitis; K21.9 - Gastro-esophageal reflux disease without esophagitis (4) Hypertension Current Visit: Yes Qualifiers: Hypertension type: essential hypertension Qualified Code(s): I10 - Essential (primary) hypertension; I10 - Essential (primary) hypertension; I10 - Essential (primary) hypertension (5) Alcohol dependence Current Visit: Yes (6) Cocaine dependence Current Visit: Yes (7) Cannabis dependence Current Visit: Yes (8) PTSD (post-traumatic stress disorder) Current Visit: Yes (9) Psychoactive substance-induced mood disorder Current Visit: Yes
[2017-04-12] MEDS: AMITRIPTYLINE HCL 100 MG TABLET PO SCH (21:41)
[2017-04-12] MEDS: THIAMINE HCL 100 MG TABLET (FP) PO SCH (21:41)
[2017-04-12] MEDS: diphenhydrAMINE HCL 50 MG CAPSULE PO PRN (21:42)
[2017-04-12] MEDS: LIDOCAINE PATCH REMOVAL MC SCH (21:42)
[2017-04-13] MEDS: ACAMPROSATE CALCIUM 333 MG TABLET.DR PO SCH (06:16)
[2017-04-13] MEDS: ACETAMINOPHEN 325 MG TABLET (FP) PO PRN (06:17)
[2017-04-13 07:38] VITALS: TEMP 97.4
[2017-04-13 09:04] VITALS: BP 144/82; PULSE 86
[2017-04-13] MEDS: RANITIDINE HCL 150 MG TABLET (FP) PO SCH (10:02)
[2017-04-13] MEDS: NAPROXEN 500 MG TABLET (FP) PO SCH (10:02)
[2017-04-13] MEDS: PRENATAL VITAMINS W/ FOLIC ACID TABLET (FP) PO SCH (10:02)
[2017-04-13] MEDS: ENALAPRIL MALEATE 10 MG TABLET (FP) PO SCH (10:02)
[2017-04-13] MEDS: LIDOCAINE 5% TOPICAL PATCH TP SCH (10:03)
== END 2017-04-13 10:20 | disposition home or self-care (01) | DRG 772 ==
LOC: YASAS 16:42 → Y3E 20:01
PROVIDERS: ADMIT Psychiatry & Neurology Psychiatry; ATTEND Psychiatry & Neurology Psychiatry
PROC: HZ42ZZZ Group Counseling for Substance Abuse Treatment, Cognitive-Behavioral (ICD-10-PCS; principal; 2017-03-23)
DX: F10.20 Alcohol dependence, uncomplicated (principal); F14.20 Cocaine dependence, uncomplicated; F12.20 Cannabis dependence, uncomplicated; F17.213 Nicotine dependence, cigarettes, with withdrawal; F43.10 Post-traumatic stress disorder, unspecified; F19.24 Other psychoactive substance dependence with psychoactive substance-induced mood disorder; J45.30 Mild persistent asthma, uncomplicated; K21.9 Gastro-esophageal reflux disease without esophagitis; I10 Essential (primary) hypertension; M13.861 Other specified arthritis, right knee; E66.9 Obesity, unspecified; Z68.43 Body mass index [BMI] 50.0-59.9, adult; W01.0XXA Fall on same level from slipping, tripping and stumbling without subsequent striking against object, initial encounter; Z91.81 History of falling; Y93.01 Activity, walking, marching and hiking; Y92.230 Patient room in hospital as the place of occurrence of the external cause
CPT/HCPCS: 36415; 80053; 81003; 85027; 86593; 93005; 93010

== ENCOUNTER 2023-09-12 09:02 | Inpatient (IN) | payer OTHER ==
[2023-09-12 09:44] VITALS: BMI 42.4
[2023-09-12] MEDS ORDERED: NALOXONE HCL 0.4 MG/ML VIAL IM PRN (10:22)
[2023-09-12] MEDS ORDERED: NALOXONE HCL (KLOXXADO) 8 MG SPRAY NS PRN (10:22)
[2023-09-12] MEDS ORDERED: LOPERAMIDE HCL 2 MG CAPSULE PO PRN (10:22)
[2023-09-12] MEDS ORDERED: BISMUTH SUBSALICYLATE 524 MG/30 ML PO PRN (10:22)
[2023-09-12] MEDS ORDERED: NICOTINE POLACRILEX 2 MG GUM BUC PRN (10:22)
[2023-09-12] MEDS ORDERED: IBUPROFEN 400 MG TABLET (FP) PO PRN (10:22)
[2023-09-12] MEDS ORDERED: ACETAMINOPHEN 325 MG TABLET (FP) PO PRN (10:22)
[2023-09-12] MEDS ORDERED: guaiFENesin 600 MG TABLET.ER (FP) PO PRN (10:22)
[2023-09-12] MEDS ORDERED: MAG HYDROX/AL HYDROX/SIMETH 30 ML UNIT-DOSE CUP PO PRN (10:22)
[2023-09-12] MEDS ORDERED: BENZONATATE 200 MG CAPSULE PO PRN (10:22)
[2023-09-12] MEDS ORDERED: BENZOCAINE/MENTHOL (CHLORASEPTIC ) LOZENGE MM PRN (10:22)
[2023-09-12] MEDS ORDERED: IBUPROFEN 600 MG TABLET (FP) PO PRN (10:22)
[2023-09-12] MEDS ORDERED: ONDANSETRON *ODT* 4 MG TABLET ONE (10:42)
[2023-09-12] MEDS: ONDANSETRON *ODT* 4 MG TABLET SL PRN (10:46)
[2023-09-12] MEDS ORDERED: ALBUTEROL SO4 HFA INHALER IH PRN (12:19)
[2023-09-12] MEDS: methaDONE HCL 10 MG TABLET (FOR DETOX USE ONLY) PO ONE (13:17)
[2023-09-12] MEDS ORDERED: ALBUTEROL SO4 2.5/IPRATROPIUM 0.5 INH SOL 3 ML VIAL.NEB. NEB PRN (14:39)
[2023-09-12] MEDS: MELATONIN 5 MG TABLETS PO SCH (22:57)
[2023-09-12] MEDS: THIAMINE HCL 100 MG TABLET (FP) PO SCH (22:57)
[2023-09-12] MEDS: METHOCARBAMOL 500 MG TABLET PO PRN (22:58)
[2023-09-12] MEDS: hydrOXYzine PAMOATE 25 MG CAPSULE (FP) PO PRN (22:58)
[2023-09-12] MEDS: cloNIDine HCL 0.1 MG TABLET PO PRN (22:58)
[2023-09-13 09:04] LABS: HEMATOCRIT 34.5 % (32.4-45.2); HEMOGLOBIN 10.6 GM/dL (10.7-15.3); MCHC 30.7 g/dl (32.0-36.0); MEAN CELL VOLUME 68.5 fl (80-96); MEAN PLT VOLUME 8.4 fl (7.5-11.1); PLATELET COUNT 246 10^3/uL (134-434); RBC 5.04 M/mm3 (3.60-5.2); RDW 20.5 % (11.6-15.6); WHITE BLOOD COUNT 7.3 K/mm3 (4.0-10.0)
[2023-09-13 09:27] LABS: POTASSIUM 4.3 mmol/L (3.5-5.1)
[2023-09-13 09:30] LABS: CALCIUM 8.9 mg/dL (8.5-10.1)
[2023-09-13 09:34] LABS: ALBUMIN 3.1 g/dl (3.4-5.0); BLOOD UREA NITROGEN 15.2 mg/dL (7-18)
[2023-09-13 09:37] LABS: CREATININE 0.9 mg/dL (0.55-1.3)
[2023-09-13 09:38] LABS: BILIRUBIN,TOTAL 0.3 mg/dL (0.2-1)
[2023-09-13] MEDS ORDERED: diazePAM 5 MG TABLET PO PRN (09:41)
[2023-09-13] MEDS ORDERED: MIST INHAL IH SCH (10:00)
[2023-09-13] MEDS ORDERED: [UNRECOGNIZED DRUG - OTHER] IH SCH (10:00)
[2023-09-13] MEDS ORDERED: IPRATROPIUM IH SCH (10:00)
[2023-09-13] MEDS ORDERED: ALBUTEROL SULFATE IH SCH (10:00)
[2023-09-13] MEDS ORDERED: PATIENT'S OWN MEDICATION (NON-FORMULARY) (Ipratropium/Albuterol Sulfate 1 PUFF) IH SCH (10:00)
[2023-09-13] MEDS: NIFEdipine E.R. 30 MG TABLET PO SCH (10:33)
[2023-09-13] MEDS: NICOTINE 14 MG/24 HOURS TOPICAL PATCH TD SCH (10:33)
[2023-09-13] MEDS: PRENATAL VITAMINS W/ FOLIC ACID TABLET (FP) PO SCH (10:34)
[2023-09-13] MEDS ORDERED: cloNIDine HCL 0.1 MG TABLET PO PRN (10:50)
[2023-09-13] MEDS: FAMOTIDINE 20 MG TABLET PO SCH (11:50)
[2023-09-13] MEDS: NALTREXONE HCL 50 MG TABLET PO SCH (11:52)
[2023-09-13] MEDS: PNEUMOC 20-VAL CONJ-DIP CRM/PF 0.5 ML SYRINGE IM ONE (12:13)
[2023-09-13] MEDS: diazePAM 5 MG TABLET PO SCH (13:35)
[2023-09-13] MEDS: GABAPENTIN 400 MG CAPSULE PO SCH (13:51)
[2023-09-13] MEDS: ESCITALOPRAM OXALATE 10 MG TABLET PO SCH (13:51)
[2023-09-13] MEDS: ARIPiprazole 10 MG TABLET PO SCH (13:51)
[2023-09-13] MEDS: AMITRIPTYLINE HCL 100 MG TABLET PO SCH (22:43)
[2023-09-14] MEDS: diazePAM 5 MG TABLET PO SCH (05:51)
[2023-09-14] MEDS: MAGNESIUM HYDROX 2400MG/30ML ORAL SUSPENSION 30 ML CUP PO PRN (09:35)
[2023-09-14] MEDS ORDERED: methaDONE HCL 10 MG TABLET (FOR DETOX USE ONLY) PO ONE (10:00)
[2023-09-15] MEDS: diazePAM 5 MG TABLET PO ONE (05:25)
[2023-09-15] MEDS: POLYETHYLENE GLYCOL (HEALTHYLAX) 3350 17 GM PACKET PO PRN (10:11)
[2023-09-15] MEDS: BISACODYL 10 MG SUPP.RECT PR ONE (19:13)
[2023-09-16] MEDS ORDERED: methaDONE HCL 10 MG TABLET (FOR DETOX USE ONLY) PO ONE (10:00)
[2023-09-16 10:08] VITALS: BP 153/64; PULSE 83; RESP 17; TEMP 97.1
== END 2023-09-16 11:10 | disposition other institution (70) | DRG 774 ==
LOC: YASAS 09:02 → Y6N 10:33
PROVIDERS: ADMIT Allergy & Immunology; ATTEND Surgery
PROC: HZ2ZZZZ Detoxification Services for Substance Abuse Treatment (ICD-10-PCS; principal; 2023-09-12)
DX: F10.230 Alcohol dependence with withdrawal, uncomplicated (principal); F14.20 Cocaine dependence, uncomplicated; F17.213 Nicotine dependence, cigarettes, with withdrawal; F32.9 Major depressive disorder, single episode, unspecified; I10 Essential (primary) hypertension; J45.20 Mild intermittent asthma, uncomplicated; K21.9 Gastro-esophageal reflux disease without esophagitis; R76.8 Other specified abnormal immunological findings in serum
CPT/HCPCS: 36415; 80053; 80307; 81025; 83036; 85027; 86593; 86780; 90677; 93005; 93010; Q0162